=== PATIENT | female | born 2000 | race Asian ===

== ENCOUNTER 2024-03-26 09:52 | Inpatient (IN) | payer BC ==
[~2024-03-26] VITALS: Ht 149.9 cm; Wt 77.6 kg
[2024-03-26 11:01] LABS: EOSINOPHILS % (AUTO) 10.1 % (0.0-7.0); HEMATOCRIT 34.4 % (31.2-41.9); HEMOGLOBIN 11.2 g/dL (10.9-14.3); LYMPHOCYTES # (AUTO) 0.6 K/uL (0.8-4.8); LYMPHOCYTES % (AUTO) 1.9 % (20.5-51.5); MEAN CORPUSCULAR HEMOGLOBIN 26.9 uug (24.7-32.8); MEAN CORPUSCULAR HGB CONC 33 g/dL (32.3-35.6); MEAN CORPUSCULAR VOLUME 82.5 fL (75.5-95.3); MONOCYTES # (AUTO) 0.8 K/uL (0.1-1.30); MONOCYTES % (AUTO) 2.7 % (0.0-11.0); NEUTROPHILS # (AUTO) 25.6 K/uL (1.8-8.9); NEUTROPHILS % (AUTO) 85.3 % (38.5-71.5); PLATELET COUNT (AUTO) 302 K/uL (179-408); RED BLOOD CELL COUNT(AUTO) 4.17 MIL/uL (3.63-4.92); RED CELL DISTRIBUTION WIDTH 14.6 % (12.3-17.7)
[2024-03-26 11:07] LABS: CARBON DIOXIDE 26 mmol/L (21-32); CHLORIDE 103 mmol/L (98-107); CREATININE 0.9 mg/dL (0.6-1.3); GLUCOSE 133 mg/dL (74-106); POTASSIUM 3.6 mmol/L (3.5-5.1); SODIUM SERUM 138 mmol/L (136-145); UREA NITROGEN, BLOOD 8 mg/dL (7-18)
[2024-03-26 11:12] LABS: DIFFERENTIAL COMMENT 1
[2024-03-26 11:15] LABS: ALANINE AMINOTRANSFERASE 25 U/L (14-59); ALBUMIN 3.1 g/dL (3.4-5.0); ALKALINE PHOSPHATASE 89 U/L (50-136); ASPARTATE AMINOTRANSFERASE 13 U/L (15-37); BILIRUBIN,DIRECT 0.3 mg/dL (0.0-0.2); BILIRUBIN,TOTAL 1.1 mg/dL (0.2-1.0); TOTAL PROTEIN, SERUM 7.3 g/dL (6.4-8.2)
[2024-03-26 11:19] LABS: *BILIRUBIN,URIN NEGATIVE (NEGATIVE); *BLOOD, URINE 1+ (NEGATIVE); *CLARITY,URINE CLEAR (CLEAR); *COLOR,URINE YELLOW (YELLOW); *KETONES,URINE NEGATIVE (NEGATIVE); *PROTEIN,URINE NEGATIVE (NEGATIVE); LEUKOCYTE ESTERASE ,URINE 2+ (NEGATIVE); NITRITE, URINE POSITIVE (NEGATIVE); PH,URINE 6.5 (5.0-8.0); UGLUCOSE NEGATIVE (NEGATIVE)
[2024-03-26 11:24] LABS: *URINE HCG, QUAL NEGATIVE (NEGATIVE)
[2024-03-26 11:30] LABS: BACTERIA,URINE MANY /HPF (NONE SEEN); SQUAMOUS EPITHELIAL CELL,UR MODERATE /HPF (NONE SEEN); WBC,URINE 20-50 /HPF (0-3)
[2024-03-26] MEDS ORDERED: CEFTRIAXONE 1 G VIAL ONE (11:46)
[2024-03-26] MEDS ORDERED: DOXY100C5 PO (11:51)
[2024-03-26] MEDS: IV NORMAL SALINE 1000 ML BAG IV ONE (12:04)
[2024-03-26] MEDS: CEFTRIAXONE 2 G in IV DEXTROSE 5% 100 ML IV ONE (12:04)
[2024-03-26] MEDS: KETOROLAC TROMETHAMINE 15 MG INJ IVP ONE (12:05)
[2024-03-26] MEDS ORDERED: KETOROLAC TROMETHAMINE 15 MG INJ ONE (12:06)
[2024-03-26] MEDS ORDERED: ONDANSETRON 4 MG/2 ML VIAL ONE (14:00)
[2024-03-26] MEDS ORDERED: ACETAMINOPHEN 500 MG TABLET ONE (14:00)
[2024-03-26] MEDS ORDERED: MORPHINE SULFATE 4 MG/1 ML DISP.SYRIN ONE (14:01)
[2024-03-26] MEDS: ONDANSETRON 4 MG/2 ML VIAL IV ONE (14:02)
[2024-03-26] MEDS: MORPHINE SULFATE 4 MG/1 ML DISP.SYRIN IV ONE (14:04)
[2024-03-26] MEDS: ACETAMINOPHEN 500 MG TABLET PO ONE (14:10)
[2024-03-26 15:00] VITALS: BP 102/49; TEMP 101.1; O2SAT 96
[2024-03-26] MEDS ORDERED: FAMO20TA8 PO (15:03)
[2024-03-26] MEDS: ACETAMINOPHEN 325 MG TABLET PO PRN (17:29)
[2024-03-26 18:06] LABS: *BILIRUBIN,URIN NEGATIVE (NEGATIVE); *BLOOD, URINE 2+ (NEGATIVE); *CLARITY,URINE CLEAR (CLEAR); *COLOR,URINE YELLOW (YELLOW); *KETONES,URINE TRACE (NEGATIVE); *PROTEIN,URINE TRACE (NEGATIVE); *UROBILINOGEN,URINE 0.2 E.U./dl (NORMAL); LEUKOCYTE ESTERASE ,URINE 1+ (NEGATIVE); NITRITE, URINE NEGATIVE (NEGATIVE); UGLUCOSE NEGATIVE (NEGATIVE)
[2024-03-26 18:28] LABS: WBC,URINE 20-50 /HPF (0-3)
[2024-03-26 18:30] LABS: BACTERIA,URINE MODERATE /HPF (NONE SEEN); SQUAMOUS EPITHELIAL CELL,UR MODERATE /HPF (NONE SEEN)
[2024-03-26] MEDS ORDERED: ACETAMINOPHEN 325 MG TABLET PO PRN (20:00)
[2024-03-26] MEDS ORDERED: REMEDY ESSENTIAL ZINC PASTE 113 GM TP PRN (20:00)
[2024-03-26 20:33] VITALS: BP 100/50; TEMP 98.2; O2SAT 96
[2024-03-26] MEDS: IV LACTATED RINGERS SOLUTION 1,000 ML IV SCH (21:13)
[2024-03-27] VITALS (8 sets, daily range): BP systolic 105–128; BP diastolic 48–69; TEMP 98.7–101.5; O2SAT 94–99
[2024-03-27] MEDS: MORPHINE SULFATE 4 MG/1 ML DISP.SYRIN IV PRN (00:17)
[2024-03-27 06:44] LABS: BASOPHILS % (AUTO) 0.1 % (0.0-2.0); EOSINOPHILS % (AUTO) 0.1 % (0.0-7.0); HEMATOCRIT 29.8 % (31.2-41.9); LYMPHOCYTES # (AUTO) 1.2 K/uL (0.8-4.8); MEAN CORPUSCULAR HEMOGLOBIN 27.6 uug (24.7-32.8); MEAN CORPUSCULAR HGB CONC 34 g/dL (32.3-35.6); MEAN CORPUSCULAR VOLUME 81.9 fL (75.5-95.3); MONOCYTES # (AUTO) 1.4 K/uL (0.1-1.30); MONOCYTES % (AUTO) 5.8 % (0.0-11.0); NEUTROPHILS # (AUTO) 20.9 K/uL (1.8-8.9); PLATELET COUNT (AUTO) 269 K/uL (179-408); RED BLOOD CELL COUNT(AUTO) 3.64 MIL/uL (3.63-4.92); RED CELL DISTRIBUTION WIDTH 14.8 % (12.3-17.7); WHITE BLOOD COUNT (AUTO) 23.5 K/uL (3.8-11.8)
[2024-03-27] MEDS: PANTOPRAZOLE SODIUM 40 MG TABLET.DR PO SCH (06:49)
[2024-03-27 06:52] LABS: DIFFERENTIAL COMMENT 1
[2024-03-27 07:10] LABS: CALCIUM 7.8 mg/dL (8.5-10.1); CREATININE 0.9 mg/dL (0.6-1.3); MAGNESIUM 1.5 mg/dL (1.8-2.4); PHOSPHOROUS 1.3 mg/dL (2.5-4.9); POTASSIUM 3.1 mmol/L (3.5-5.1)
[2024-03-27 08:12] LABS: THYROID STIMULATING HORMONE 1.414 mIU/mL (0.358-3.740)
[2024-03-27] MEDS ORDERED: CEFTRIAXONE 2 G in IV DEXTROSE 5% 100 ML IV SCH (09:00)
[2024-03-27] MEDS: MAGNESIUM OXIDE 400 MG TABLET PO ONE (10:15)
[2024-03-27] MEDS: POTASSIUM CHLORIDE 20 MEQ TAB.PRT.SR PO ONE (10:15)
[2024-03-27] MEDS: CEFTRIAXONE 2 G in IV DEXTROSE 5% 100 ML IV SCH (10:48)
[2024-03-27] MEDS: POTASSIUM PHOSPHATE MM 15 MMOL in IV NORMAL SALINE 250 ML IV ONE (10:49)
[2024-03-27] MEDS: ONDANSETRON 4 MG/2 ML VIAL IV PRN (14:01)
[2024-03-28] VITALS (10 sets, daily range): BP systolic 117–128; BP diastolic 59–87; TEMP 98.5–103.4; O2SAT 95–99
[2024-03-28 07:12] LABS: CALCIUM 8.5 mg/dL (8.5-10.1); CREATININE 0.8 mg/dL (0.6-1.3); MAGNESIUM 1.3 mg/dL (1.8-2.4); PHOSPHOROUS 3.3 mg/dL (2.5-4.9); POTASSIUM 3.8 mmol/L (3.5-5.1)
[2024-03-28] MEDS: MAGNESIUM HYDROXIDE 30 ML LIQUID UDC PO PRN (09:25)
[2024-03-28 10:01] LABS: BASOPHILS # (AUTO) 0.1 K/UL (0.0-0.2); BASOPHILS % (AUTO) 0.4 % (0.0-2.0); DIFFERENTIAL COMMENT 0; EOSINOPHILS # (AUTO) 0.1 K/uL (0.0-0.7); EOSINOPHILS % (AUTO) 0.8 % (0.0-7.0); HEMOGLOBIN 9.5 g/dL (10.9-14.3); LYMPHOCYTES # (AUTO) 1.8 K/uL (0.8-4.8); LYMPHOCYTES % (AUTO) 10.9 % (20.5-51.5); MEAN CORPUSCULAR HEMOGLOBIN 26.8 uug (24.7-32.8); MEAN CORPUSCULAR HGB CONC 33 g/dL (32.3-35.6); MEAN CORPUSCULAR VOLUME 81.8 fL (75.5-95.3); MONOCYTES # (AUTO) 1.4 K/uL (0.1-1.30); MONOCYTES % (AUTO) 8.7 % (0.0-11.0); NEUTROPHILS % (AUTO) 79.2 % (38.5-71.5); PLATELET COUNT (AUTO) 245 K/uL (179-408); RED BLOOD CELL COUNT(AUTO) 3.55 MIL/uL (3.63-4.92); RED CELL DISTRIBUTION WIDTH 15.4 % (12.3-17.7); WHITE BLOOD COUNT (AUTO) 16.3 K/uL (3.8-11.8)
[2024-03-28] MEDS ORDERED: HYDROCODONE/APAP 5-325MG TABLET PO PRN (11:15)
[2024-03-28] MEDS: ENOXAPARIN SODIUM 40 MG/0.4 ML DISP.SYRIN SQ SCH (11:52)
[2024-03-28] MEDS: MAGNESIUM OXIDE 400 MG TABLET PO SCH (11:55)
[2024-03-28] MEDS ORDERED: MAGNESIUM HYDROXIDE 30 ML LIQUID UDC PO PRN (12:00)
[2024-03-28] MEDS: IV LACTATED RINGERS SOLUTION 1,000 ML IV PRN (12:22)
[2024-03-28] MEDS: FUROSEMIDE 20 MG/2 ML VIAL IV ONE (13:28)
[2024-03-28] MEDS: POTASSIUM CHLORIDE 20 MEQ TAB.PRT.SR PO ONE (16:50)
[2024-03-28] MEDS: VANCOMYCIN IV 1,000 MG in IV DEXTROSE 5% 250 ML IV SCH (17:07)
[2024-03-28] MEDS: MEROPENEM 1 G in IV NORMAL SALINE 100 ML IV SCH (17:08)
[2024-03-28] MEDS ORDERED: FUROSEMIDE 20 MG/2 ML VIAL IV ONE (19:00)
[2024-03-29] VITALS (8 sets, daily range): BP systolic 125–144; BP diastolic 78–86; TEMP 98–100.6; O2SAT 90–98
[2024-03-29] MEDS: CALCIUM CARBONATE 500 MG TAB.CHEW PO PRN (01:18)
[2024-03-29 07:15] LABS: CALCIUM 8.4 mg/dL (8.5-10.1); CREATININE 0.8 mg/dL (0.6-1.3); MAGNESIUM 1.9 mg/dL (1.8-2.4); POTASSIUM 3.6 mmol/L (3.5-5.1)
[2024-03-29 07:58] LABS: BASOPHILS # (AUTO) 0.1 K/UL (0.0-0.2); BASOPHILS % (AUTO) 0.8 % (0.0-2.0); DIFFERENTIAL COMMENT 0; EOSINOPHILS # (AUTO) 0.1 K/uL (0.0-0.7); EOSINOPHILS % (AUTO) 0.7 % (0.0-7.0); HEMATOCRIT 29.2 % (31.2-41.9); HEMOGLOBIN 9.6 g/dL (10.9-14.3); LYMPHOCYTES # (AUTO) 1.9 K/uL (0.8-4.8); LYMPHOCYTES % (AUTO) 15.2 % (20.5-51.5); MEAN CORPUSCULAR HEMOGLOBIN 26.7 uug (24.7-32.8); MEAN CORPUSCULAR HGB CONC 33 g/dL (32.3-35.6); MEAN CORPUSCULAR VOLUME 81.1 fL (75.5-95.3); MONOCYTES % (AUTO) 7.5 % (0.0-11.0); NEUTROPHILS # (AUTO) 9.7 K/uL (1.8-8.9); NEUTROPHILS % (AUTO) 75.8 % (38.5-71.5); PLATELET COUNT (AUTO) 294 K/uL (179-408); RED BLOOD CELL COUNT(AUTO) 3.61 MIL/uL (3.63-4.92); RED CELL DISTRIBUTION WIDTH 15.1 % (12.3-17.7); WHITE BLOOD COUNT (AUTO) 12.8 K/uL (3.8-11.8)
[2024-03-29] MEDS: FUROSEMIDE 20 MG/2 ML VIAL IV ONE (08:51)
[2024-03-30] VITALS (7 sets, daily range): BP systolic 113–133; BP diastolic 57–83; TEMP 98–99.4; O2SAT 94–98
[2024-03-30 04:35] LABS: BASOPHILS # (AUTO) 0.1 K/UL (0.0-0.2); BASOPHILS % (AUTO) 0.6 % (0.0-2.0); EOSINOPHILS # (AUTO) 0.2 K/uL (0.0-0.7); EOSINOPHILS % (AUTO) 2.3 % (0.0-7.0); HEMATOCRIT 32.2 % (31.2-41.9); HEMOGLOBIN 10.6 g/dL (10.9-14.3); LYMPHOCYTES # (AUTO) 2.8 K/uL (0.8-4.8); LYMPHOCYTES % (AUTO) 34.4 % (20.5-51.5); MEAN CORPUSCULAR HEMOGLOBIN 26.6 uug (24.7-32.8); MEAN CORPUSCULAR HGB CONC 33 g/dL (32.3-35.6); MONOCYTES # (AUTO) 1.4 K/uL (0.1-1.30); MONOCYTES % (AUTO) 16.8 % (0.0-11.0); NEUTROPHILS # (AUTO) 3.7 K/uL (1.8-8.9); NEUTROPHILS % (AUTO) 45.9 % (38.5-71.5); PLATELET COUNT (AUTO) 327 K/uL (179-408); RED BLOOD CELL COUNT(AUTO) 3.97 MIL/uL (3.63-4.92); RED CELL DISTRIBUTION WIDTH 15.2 % (12.3-17.7); WHITE BLOOD COUNT (AUTO) 8.1 K/uL (3.8-11.8)
[2024-03-30 04:40] LABS: DIFFERENTIAL COMMENT 1
[2024-03-30 04:41] LABS: CALCIUM 8.6 mg/dL (8.5-10.1); CREATININE 0.8 mg/dL (0.6-1.3); MAGNESIUM 1.8 mg/dL (1.8-2.4); POTASSIUM 3.7 mmol/L (3.5-5.1)
[2024-03-30 06:50] LABS: EOSINOPHILS % (MANUAL) 4 % (0-8); LYMPHOCYTES % (MANUAL) 38 % (20-40); MONOCYTES % (MANUAL) 18 % (2-10); NEUTROPHILS % (MANUAL) 40 % (42-75); PLATELET ESTIMATE ADEQUATE
[2024-03-30] MEDS: CEFTRIAXONE 2 G in IV DEXTROSE 5% 100 ML IV SCH (11:25)
[2024-03-31 00:08] VITALS: BP 129/78; TEMP 98; O2SAT 96
[2024-03-31 06:02] VITALS: BP 122/66; TEMP 98.8; O2SAT 98
[2024-03-31 07:01] LABS: CREATININE 0.8 mg/dL (0.6-1.3); MAGNESIUM 2.2 mg/dL (1.8-2.4); PHOSPHOROUS 4.1 mg/dL (2.5-4.9); POTASSIUM 3.9 mmol/L (3.5-5.1)
[2024-03-31 07:05] LABS: BASOPHILS # (AUTO) 0.1 K/UL (0.0-0.2); BASOPHILS % (AUTO) 0.7 % (0.0-2.0); EOSINOPHILS # (AUTO) 0.3 K/uL (0.0-0.7); EOSINOPHILS % (AUTO) 2.1 % (0.0-7.0); HEMOGLOBIN 11.1 g/dL (10.9-14.3); LYMPHOCYTES # (AUTO) 2.4 K/uL (0.8-4.8); LYMPHOCYTES % (AUTO) 19.8 % (20.5-51.5); MEAN CORPUSCULAR HGB CONC 34 g/dL (32.3-35.6); MEAN CORPUSCULAR VOLUME 80.8 fL (75.5-95.3); MONOCYTES # (AUTO) 1.4 K/uL (0.1-1.30); MONOCYTES % (AUTO) 11.5 % (0.0-11.0); NEUTROPHILS # (AUTO) 7.9 K/uL (1.8-8.9); NEUTROPHILS % (AUTO) 65.9 % (38.5-71.5); PLATELET COUNT (AUTO) 336 K/uL (179-408); RED BLOOD CELL COUNT(AUTO) 4.09 MIL/uL (3.63-4.92); RED CELL DISTRIBUTION WIDTH 15.3 % (12.3-17.7)
[2024-03-31 07:11] LABS: DIFFERENTIAL COMMENT 1
[2024-03-31 07:47] VITALS: BP 110/70; TEMP 99; O2SAT 98
[2024-03-31] MEDS: CIPROFLOXACIN HCL 250 MG TABLET PO SCH (08:51)
[2024-03-31] MEDS ORDERED: CIPR250T4 PO (11:07)
[2024-03-31 11:15] VITALS: BP 116/78; TEMP 98.1; O2SAT 96
== END 2024-03-31 12:00 | disposition home or self-care (01) | DRG 871 ==
LOC: ER 09:52 → MEDSURG3 14:35 → TELE3 20:30
PROVIDERS: ADMIT Nurse Practitioner Acute Care; ATTEND Nurse Practitioner Acute Care
PROC: 05HF33Z Insertion of Infusion Device into Left Cephalic Vein, Percutaneous Approach (ICD-10-PCS; principal; 2024-03-27)
DX: A41.9 Sepsis, unspecified organism (principal); I50.31 Acute diastolic (congestive) heart failure; J96.01 Acute respiratory failure with hypoxia; N13.6 Pyonephrosis; N39.0 Urinary tract infection, site not specified; Z16.11 Resistance to penicillins; E87.70 Fluid overload, unspecified; E28.2 Polycystic ovarian syndrome; B96.1 Klebsiella pneumoniae [K. pneumoniae] as the cause of diseases classified elsewhere; R65.20 Severe sepsis without septic shock; Z86.19 Personal history of other infectious and parasitic diseases; E66.9 Obesity, unspecified; Z68.34 Body mass index [BMI] 34.0-34.9, adult; Z86.16 Personal history of COVID-19
CPT/HCPCS: 36415; 70030-TC; 71045; 76856; 83605; 83735; 84100; 84443; 84484; 84703; 85025; 87040; 93307; A9150; G0378; J0696; J1650; J1885; J1940; J2185; J2270; J2405; J3370; J3490; J7040; J7050; J7120